=== PATIENT | female | born 1985 | race Two or more races ===

== ENCOUNTER 2019-05-17 13:29 | Emergency (ER) | payer SELFPAY ==
[~2019-05-17] VITALS: Ht 160 cm; Wt 72.6 kg
[~2019-05-17 13:29] MED LIST: ACET-704 PO; IBUP-1060 PO
--- NOTE | 2019-05-17 15:33 | PHYS DOC ---
Adult General Chief Complaint Chief Complaint: VAGINAL BLEEDING HPI HPI Patient is a 33 year old female 4 para 3 presenting to the ED today with vaginal bleeding in . Patient states her menstrual cycle is supposed to start May 06, 2019. She states she did a home test on her cycle did not start and it was positive. She states May 15 she had some bleeding as well as May 16. She states the bleeding stopped. Patient denies any abdominal pain. Denies any nausea vomiting. 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 Denies abdominal pain, nausea, vomiting, bloody stools or diarrhea [] : Denies dysuria or hematuria [] Musculoskeletal: Denies back pain or joint pain [] Integument: Denies rash or skin lesions [] Neurologic: Denies headache, focal weakness or sensory changes [] All other systems were reviewed and found to be within normal limits, except as documented in this note. Current Medications Current Medications Current Medications Medications (Trade) Dose Ordered Sig/Varsha Start Time Stop Time Status Last Admin Dose Admin Ceftriaxone Sodium (Rocephin) 1 gm 1X ONCE 05/17/19 16:30 05/17/19 16:31 DC 05/17/19 16:56 1 GM Allergies Allergies Allergies Coded Allergies Type Severity Reaction Last Updated Verified No Known Drug Allergies 09/04/15 No Physical Exam Physical Exam Constitutional: Well developed, well nourished, no acute distress, non-toxic appearance. [] HENT: Normocephalic, atraumatic, bilateral external ears normal, oropharynx moist, no oral exudates, nose normal. [] Eyes: PERRLA, EOMI, conjunctiva normal, no discharge. [] Neck: Normal range of motion, no tenderness, supple, no stridor. [] Cardiovascular:Heart rate regular rhythm, no murmur [] Lungs & Thorax: Bilateral breath sounds clear to auscultation [] Abdomen: Bowel sounds normal, soft, no tenderness, no masses, no pulsatile masses. [] Pelvic exam External pelvic appears normal, cervix is visualized, closed, no CMT, trace amount of brownish discharge in the vaginal vault consistent with spotting, no adnexal tenderness. Skin: Warm, dry, no erythema, no rash. [] Back: No tenderness, no CVA tenderness. [] Extremities: No tenderness, no cyanosis, no clubbing, ROM intact, no edema. [] Neurologic: Alert and oriented X 3, normal motor function, normal sensory function, no focal deficits noted. [] Psychologic: Affect normal, judgement normal, mood normal. [] Current Patient Data Vital Signs Vital Signs Date Time Temp Pulse Resp B/P (MAP) Pulse Ox O2 Delivery O2 Flow Rate FiO2 05/17/19 15:40 98.0 78 14 135/76 (95) 99 Room Air 98.0 Lab Values Laboratory Tests Test 05/17/19 15:17 05/17/19 15:21 05/17/19 15:55 Urine Collection Type Unknown Urine Color Yellow Urine Clarity Clear Urine pH 6.5 Urine Specific [place] 1.010 Urine Protein Negative mg/dL (NEG-TRACE) Urine Glucose (UA) Negative mg/dL (NEG) Urine Ketones (Stick) Negative mg/dL (NEG) Urine Blood Moderate (NEG) Urine Nitrite Negative (NEG) Urine Bilirubin Negative (NEG) Urine Urobilinogen Dipstick 0.2 mg/dL (0.2 mg/dL) Urine Leukocyte Esterase Large (NEG) Urine RBC 1-2 /HPF (0-2) Urine WBC 20-40 /HPF (0-4) Urine Squamous Epithelial Cells Many /LPF Urine Bacteria Many /HPF (0-FEW) POC Urine HCG, Qualitative Hcg positive (Negative) White Blood Count 7.6 x10^3/uL (4.0-11.0) Red Blood Count 4.19 x10^6/uL (3.50-5.40) Hemoglobin 13.3 g/dL (12.0-15.5) Hematocrit 38.2 % (36.0-47.0) Mean Corpuscular Volume 91 fL (79-100) Mean Corpuscular Hemoglobin 32 pg (25-35) Mean Corpuscular Hemoglobin Concent 35 g/dL (31-37) Red Cell Distribution Width 12.7 % (11.5-14.5) Platelet Count 232 x10^3/uL (140-400) Neutrophils (%) (Auto) 72 % (31-73) Lymphocytes (%) (Auto) 22 % (24-48) L Monocytes (%) (Auto) 4 % (0-9) Eosinophils (%) (Auto) 1 % (0-3) Basophils (%) (Auto) 1 % (0-3) Neutrophils # (Auto) 5.5 x10^3uL (1.8-7.7) Lymphocytes # (Auto) 1.7 x10^3/uL (1.0-4.8) Monocytes # (Auto) 0.3 x10^3/uL (0.0-1.1) Eosinophils # (Auto) 0.0 x10^3/uL (0.0-0.7) Basophils # (Auto) 0.0 x10^3/uL (0.0-0.2) Maternal Serum HCG Beta Subunit 71357 mIU/mL (0-5) H Sodium Level 138 mmol/L (136-145) Potassium Level 3.4 mmol/L (3.5-5.1) L Chloride Level 104 mmol/L (98-107) Carbon Dioxide Level 26 mmol/L (21-32) Anion Gap 8 (6-14) Blood Urea Nitrogen 9 mg/dL (7-20) Creatinine 0.7 mg/dL (0.6-1.0) Estimated GFR (Cockcroft-Gault) 95.2 Glucose Level 124 mg/dL (70-99) H Calcium Level 8.8 mg/dL (8.5-10.1) Laboratory Tests 05/17/19 15:55 Laboratory Tests 05/17/19 15:55 Microbiology 05/17/19 Wet Prep - Final, Complete EKG EKG [] Radiology/Procedures Radiology/Procedures []PROCEDURE: OB <14 WKS W/TV Examination: OB <14 WKS W/TV History: Vaginal bleeding in Comparison/Correlation: None Findings: OB ultrasound was performed. Transvaginal technique. Transvaginal technique was utilized to better assess the adnexal structures. Uterus measures 10.8 cm x 6.4 cm x 5.4 cm. Myometrium is normal. Intrauterine gestational sac is present with mean diameter 1.1 cm corresponding to 5 weeks 6 days gestation. EDC by ultrasound is 01/11/2020. Yolk sac is evident. No pole identified. Small subchorionic hemorrhage measuring 0.9 cm x 0.5 cm x 0.4 cm is present. Right ovary is not identified. Left ovary measures 3.6 cm x 3.2 cm x 2.2 cm. Normal flow on spectral Doppler imaging of the left ovary noted. No pelvic free fluid. Impression: Early intrauterine gestation is present with yolk sac evident. No pole at this time. Small subchorionic hemorrhage. Electronically signed by: Mihir Licona MD (05/17/2019 5:19 PM) [facility]– [place] DICTATED and SIGNED BY: MIHIR LICONA MD DATE: 05/17/19 7281 Course & Med Decision Making Course & Med Decision Making Pertinent Labs and Imaging studies reviewed. (See chart for details) This is a 33-year-old female patient 4 para 3 presenting to the ED today with vaginal bleeding in states she did a home test on May 06 which was positive. She bled on May 15 in May 16. No bleeding today. Positive urine hCG, beta-hCG 10,265, wet prep negative for any acute findings, CBC with normal WBC, normal hemoglobin and hematocrit, BMP no acute findings. Trace amount of spotting noted during vaginal exam. OB ultrasound noted for -Early intrauterine gestation is present with yolk sac evident. No pole at this time. Small subchorionic hemorrhage. Urine analysis is noted for large amount of leukocytes, started on Rocephin and discharged on cephalexin. Blood group O+ Patient was discharged to home. Follow-up with [facility] in the next 2 days. Instructed to maintain pelvic rest. Provided return precautions. Dragon Disclaimer Dragon Disclaimer This electronic medical record was generated, in whole or in part, using a voice recognition dictation system. Departure Departure Impression: Primary Impression: Threatened miscarriage Additional Impressions: Urinary tract infection during Subchorionic hemorrhage Disposition: HOME, SELF-CARE Condition: STABLE Referrals: NO PCP (PCP) FRANCIE ULRICH Jr, MD follow up in 2 days Patient Instructions: Subchorionic Hematoma, Threatened Miscarriage, Urinary Tract Infection Additional Instructions: You were evaluated in the emergency room for vaginal bleeding in . Your ultrasound shows you are in the early weeks of . You also have urinary tract infection, take the prescribed antibiotics until completed. Maintain bedrest and pelvic rest this includes no sex until seen by the [facility] and the bleeding has completely stopped. Please return to the emergency room at any point symptoms worsen. Scripts Cephalexin (CEPHALEXIN) 500 Mg Capsule 1 CAP PO BID, #14 CAP Prov: JOSE THOMASON APRN 05/17/19 Problem Qualifiers Additional Impressions: Urinary tract infection during Trimester: first trimester Qualified Codes: O23.41 - Unspecified infection of urinary tract in , first trimester Subchorionic hemorrhage Fetus number: single or unspecified fetus Trimester: first trimester Qualified Codes: O41.8X10 - Other specified disorders of amniotic fluid and membranes, first trimester, not applicable or unspecified; O46.8X1 - Other antepartum hemorrhage, first trimester JOSE THOMASON APRN May 17, 2019 15:32
[2019-05-17 15:39] LABS: BILIRUBIN,URINE NEGATIVE (NEG); CLARITY,URINE CLEAR; COLOR,URINE YELLOW; NITRITE,URINE NEGATIVE (NEG); PH,URINE 6.5; PROTEIN,URINE NEGATIVE (NEG-TRACE); UROBILINOGEN,URINE 0.2 mg/dL (0.2 mg/dL)
[2019-05-17 15:58] LABS: BACTERIA,URINE MANY /HPF (0-FEW); SQUAMOUS EPITHELIAL CELL,UR MANY /LPF; WBC,URINE 20-40 /HPF (0-4)
[2019-05-17 16:03] LABS: BASO % 1 % (0-3); EOS % 1 % (0-3); HEMATOCRIT 38.2 % (36.0-47.0); HEMOGLOBIN 13.3 g/dL (12.0-15.5); LYMPH # 1.7 x10^3/uL (1.0-4.8); LYMPH % 22 % (24-48); MEAN CORPUSCULAR HEMOGLOBIN 32 pg (25-35); MEAN CORPUSCULAR HGB CONC 35 g/dL (31-37); MEAN CORPUSCULAR VOLUME 91 fL (79-100); MONO # 0.3 x10^3/uL (0.0-1.1); MONO % 4 % (0-9); NEUT # 5.5 x10^3uL (1.8-7.7); NEUT % 72 % (31-73); PLATELET COUNT 232 x10^3/uL (140-400); RED BLOOD COUNT 4.19 x10^6/uL (3.50-5.40); RED CELL DISTRIBUTION WIDTH 12.7 % (11.5-14.5); WHITE BLOOD COUNT 7.6 x10^3/uL (4.0-11.0)
[2019-05-17] MEDS ORDERED: cefTRIAXone IV Push 1 GM VIAL. IVP ONE (16:30)
[2019-05-17 16:35] LABS: CALCIUM 8.8 mg/dL (8.5-10.1); CREATININE 0.7 mg/dL (0.6-1.0); GFR 95.2; POTASSIUM 3.4 mmol/L (3.5-5.1)
--- NOTE | 2019-05-17 17:22 | RAD ---
Examination: OB <14 WKS W/TV History: Vaginal bleeding in Comparison/Correlation: None Findings: OB ultrasound was performed. Transvaginal technique. Transvaginal technique was utilized to better assess the adnexal structures. Uterus measures 10.8 cm x 6.4 cm x 5.4 cm. Myometrium is normal. Intrauterine gestational sac is present with mean diameter 1.1 cm corresponding to 5 weeks 6 days gestation. EDC by ultrasound is 01/11/2020. Yolk sac is evident. No pole identified. Small subchorionic hemorrhage measuring 0.9 cm x 0.5 cm x 0.4 cm is present. Right ovary is not identified. Left ovary measures 3.6 cm x 3.2 cm x 2.2 cm. Normal flow on spectral Doppler imaging of the left ovary noted. No pelvic free fluid. Impression: Early intrauterine gestation is present with yolk sac evident. No pole at this time. Small subchorionic hemorrhage. Electronically signed by: Mihir Kaminski MD (05/17/2019 5:19 PM) [facility]
[2019-05-17] MEDS ORDERED: CEPH500C PO (18:40)
[2019-05-17 18:53] VITALS: BP 128/61
[2019-05-19 17:08] LABS: GC PROBE Negative (Negative)
== END 2019-05-17 18:57 | disposition home or self-care (01) ==
LOC: ER 13:29
DX: O20.0 Threatened abortion (principal); O23.41 Unspecified infection of urinary tract in pregnancy, first trimester; O41.8X10 Other specified disorders of amniotic fluid and membranes, first trimester, not applicable or unspecified; O46.8X1 Other antepartum hemorrhage, first trimester; Z3A.01 Less than 8 weeks gestation of pregnancy
CPT/HCPCS: 36415; 76801; 76817; 80048; 81001; 81025; 84702; 85025; 86850; 86900; 86901; 87086; 87491; 87591; 96374; 99285; J0696; Q0111

== ENCOUNTER 2019-12-19 06:13 | Observation (INO) | payer SELFPAY ==
[~2019-12-19 06:13] MED LIST changes: +CEPH500C PO
[2019-12-19] MEDS ORDERED: IV RINGERS,LACTATED 1000ML 1,000 ML IV SCH (06:16)
[2019-12-19 07:06] LABS: BILIRUBIN,URINE NEGATIVE (NEG); CLARITY,URINE CLOUDY; COLOR,URINE YELLOW; NITRITE,URINE NEGATIVE (NEG); PROTEIN,URINE NEGATIVE (NEG-TRACE)
[2019-12-19 07:35] LABS: BACTERIA,URINE MODERATE /HPF (0-FEW); RBC,URINE OCC /HPF (0-2); SQUAMOUS EPITHELIAL CELL,UR MANY /LPF; WBC,URINE >40 /HPF (0-4)
[2019-12-23] MEDS ORDERED: DOCU-109 PO (08:17)
[2019-12-23] MEDS ORDERED: OXYC1TAB15 PO (08:17)
[2019-12-23] MEDS ORDERED: IBUP-1060 PO (08:17)
== END 2019-12-19 08:20 | disposition hospice, home (50) ==
LOC: 3 SO LND 06:13
PROVIDERS: ADMIT Obstetrics & Gynecology; ATTEND Obstetrics & Gynecology
DX: O62.9 Abnormality of forces of labor, unspecified (principal); Z3A.36 36 weeks gestation of pregnancy
CPT/HCPCS: 81001; 87086; G0378; G0379